=== PATIENT | male | born 1960 ===

== ENCOUNTER 2017-08-19 01:06 | Inpatient (IN) | payer BC ==
[2017-08-19] MEDS ORDERED: SODIUM CHLORIDE 0.9% 1,000 ML IV STA (01:32)
[2017-08-19] MEDS ORDERED: SODIUM CHLORIDE 0.9% 500 ML IV ONE (01:33)
[2017-08-19] MEDS ORDERED: HYDROmorphone 0.5 MG/0.5 ML SYRINGE IVP STA (01:33)
[2017-08-19] MEDS ORDERED: RX INFO: IV CONTRAST WAS GIVEN 1 EACH MISC MISCELLANE PRN (01:33)
[2017-08-19] MEDS ORDERED: ONDANSETRON 4 MG/2 ML VIAL IVP STA (01:33)
--- NOTE | 2017-08-19 01:37 | ED ---
General Adult HPI - General Chief complaint: Abdominal Pain Stated complaint: Abdominal Pain Time Seen by Provider: 08/19/17 01:18 Source: patient Mode of arrival: ambulatory Limitations: language barrier - History of Present Illness Initial comments: 56-year-old male presenting with chief complaint of abdominal pain. History is somewhat limited secondary to language barrier. Patient complains of approximately one week of generalized abdominal pain. Patient points to his belly button and lower abdomen. He denies any chest pain. States he has had some shortness of breath over the past week as well. No fever reported. Patient denies vomiting but states he has had nausea. He denies diarrhea. Patient states he has no known medical problems, however he does not see a doctor regularly. He is not on any medication currently. He does admit to decreased oral intake secondary to nausea. - Related Data Allergies Allergy/AdvReac Type Severity Reaction Status Date / Time No Known Allergies Allergy Verified 08/19/17 01:14 Review of Systems ROS Statement: Those systems with pertinent positive or pertinent negative responses have been documented in the HPI. ROS Other: All systems not noted in ROS Statement are negative. Past Medical History Past Medical History: No Reported History History of Any Multi-Drug Resistant Organisms: None Reported Past Surgical History: No Surgical Hx Reported Past Psychological History: No Psychological Hx Reported Smoking Status: Never smoker Past Alcohol Use History: None Reported Past Drug Use History: None Reported General Exam Limitations: no limitations General appearance: alert, in no apparent distress Head exam: Present: atraumatic, normocephalic Eye exam: Present: normal appearance, PERRL ENT exam: Present: mucous membranes dry Neck exam: Present: normal inspection. Absent: tenderness, meningismus Respiratory exam: Present: normal lung sounds bilaterally. Absent: respiratory distress, wheezes, rales Cardiovascular Exam: Present: tachycardia, irregular rhythm GI/Abdominal exam: Present: soft, tenderness (Generalized tenderness, although there is focal tenderness in the right lower quadrant). Absent: distended, guarding, rebound Rectal exam: Present: normal inspection, normal rectal tone. Absent: black stool, bloody stool Extremities exam: Present: normal inspection, normal capillary refill. Absent: pedal edema Neurological exam: Present: alert, oriented X3, CN II-XII intact. Absent: motor sensory deficit Psychiatric exam: Present: normal affect, normal mood Skin exam: Present: warm, dry, intact. Absent: cyanosis, diaphoretic Course Vital Signs 08/19/17 08/19/17 01:07 02:22 Temperature 97.0 F L Pulse Rate 91 122 H Respiratory 16 18 Rate Blood Pressure 189/101 134/99 O2 Sat by Pulse 99 96 Oximetry EKG Findings - EKG Comments: EKG Findings:: EKG shows atrial fibrillation with RVR, rate of 110, no ST segment elevation, QRS duration 90, QTC 427 Medical Decision Making - Medical Decision Making 56-year-old male presenting with chief complaint of generalized abdominal pain and mild shortness of breath. Patient is noted to be in A. fib with RVR. He has no history of A. fib, he does not see a doctor, not currently on any medications. No lower extremity edema, lungs clear to auscultation. Laboratory studies are obtained, white blood cell count is 8.7, hemoglobin stable 14.9, INR is elevated at 1.6, without anticoagulation, total bili is 1.1 , AST and ALT are mildly elevated likely secondary to venous congestion. BNP is elevated 3050, troponin 0.061. Patient has no chest pain, this is likely secondary to heart failure. Chest x-ray shows cardiomegaly, no significant pulmonary edema, there is right-sided effusion. CT shows mild ascites and cardiomegaly, ascites and venous congestion likely the cause of patient's abdominal pain and nausea. Patient is given aspirin, Lasix, started on Cardizem and heparin in the emergency department. Echo will be obtained. Patient will be admitted with cardiology on consult. Patient states he has a remote history of alcohol use, denies any current alcohol consumption. - Lab Data Result diagrams: 08/19/17 01:25 08/19/17 01:25 Lab Results 08/19/17 08/19/17 08/19/17 Range/Units 01:25 01:25 01:25 WBC 8.7 (3.8-10.6) k/uL RBC 5.65 (4.30-5.90) m/uL Hgb 14.9 (13.0-17.5) gm/dL Hct 50.3 (39.0-53.0) % MCV 89.1 (80.0-100.0) fL MCH 26.4 (25.0-35.0) pg MCHC 29.6 L (31.0-37.0) g/dL RDW 14.7 (11.5-15.5) % Plt Count 170 (150-450) k/uL Neutrophils % 74 % Lymphocytes % 18 % Monocytes % 5 % Eosinophils % 1 % Basophils % 1 % Neutrophils # 6.5 (1.3-7.7) k/uL Lymphocytes # 1.5 (1.0-4.8) k/uL Monocytes # 0.4 (0-1.0) k/uL Eosinophils # 0.1 (0-0.7) k/uL Basophils # 0.1 (0-0.2) k/uL Hypochromasia Marked PT (9.0-12.0) sec INR (<1.2) APTT (22.0-30.0) sec Sodium 136 L (137-145) mmol/L Potassium 4.5 (3.5-5.1) mmol/L Chloride 99 (98-107) mmol/L Carbon Dioxide 29 (22-30) mmol/L Anion Gap 8 mmol/L BUN 19 (9-20) mg/dL Creatinine 0.70 (0.66-1.25) mg/dL Est GFR (MDRD) Af Amer >60 (>60 ml/min/1.73 sqM) Est GFR (MDRD) Non-Af >60 (>60 ml/min/1.73 sqM) Glucose 122 H (74-99) mg/dL Calcium 9.3 (8.4-10.2) mg/dL Magnesium 1.8 (1.6-2.3) mg/dL Total Bilirubin 1.1 (0.2-1.3) mg/dL AST 81 H (17-59) U/L ALT 88 H (21-72) U/L Alkaline Phosphatase 166 H (38-126) U/L Total Creatine Kinase 179 H (55-170) U/L CK-MB (CK-2) 6.9 H* (0.0-2.4) ng/mL CK-MB (CK-2) Rel Index 3.9 Troponin I 0.061 H* (0.000-0.034) ng/mL NT-Pro-B Natriuret Pep pg/mL Total Protein 6.8 (6.3-8.2) g/dL Albumin 3.7 (3.5-5.0) g/dL Lipase 144 (23-300) U/L Urine Color Urine Appearance (Clear) Urine pH (5.0-8.0) Ur Specific [place] (1.001-1.035) Urine Protein (Negative) Urine Glucose (UA) (Negative) Urine Ketones (Negative) Urine Blood (Negative) Urine Nitrite (Negative) Urine Bilirubin (Negative) Urine Urobilinogen (<2.0) mg/dL Ur Leukocyte Esterase (Negative) Urine RBC (0-5) /hpf Urine WBC (0-5) /hpf Urine Mucus (None) /hpf 08/19/17 08/19/17 08/19/17 Range/Units 01:25 01:25 01:44 WBC (3.8-10.6) k/uL RBC (4.30-5.90) m/uL Hgb (13.0-17.5) gm/dL Hct (39.0-53.0) % MCV (80.0-100.0) fL MCH (25.0-35.0) pg MCHC (31.0-37.0) g/dL RDW (11.5-15.5) % Plt Count (150-450) k/uL Neutrophils % % Lymphocytes % % Monocytes % % Eosinophils % % Basophils % % Neutrophils # (1.3-7.7) k/uL Lymphocytes # (1.0-4.8) k/uL Monocytes # (0-1.0) k/uL Eosinophils # (0-0.7) k/uL Basophils # (0-0.2) k/uL Hypochromasia PT 14.6 H (9.0-12.0) sec INR 1.6 H (<1.2) APTT 24.4 (22.0-30.0) sec Sodium (137-145) mmol/L Potassium (3.5-5.1) mmol/L Chloride (98-107) mmol/L Carbon Dioxide (22-30) mmol/L Anion Gap mmol/L BUN (9-20) mg/dL Creatinine (0.66-1.25) mg/dL Est GFR (MDRD) Af Amer (>60 ml/min/1.73 sqM) Est GFR (MDRD) Non-Af (>60 ml/min/1.73 sqM) Glucose (74-99) mg/dL Calcium (8.4-10.2) mg/dL Magnesium (1.6-2.3) mg/dL Total Bilirubin (0.2-1.3) mg/dL AST (17-59) U/L ALT (21-72) U/L Alkaline Phosphatase (38-126) U/L Total Creatine Kinase (55-170) U/L CK-MB (CK-2) (0.0-2.4) ng/mL CK-MB (CK-2) Rel Index Troponin I (0.000-0.034) ng/mL NT-Pro-B Natriuret Pep 3050 pg/mL Total Protein (6.3-8.2) g/dL Albumin (3.5-5.0) g/dL Lipase (23-300) U/L Urine Color Yellow Urine Appearance Clear (Clear) Urine pH 6.5 (5.0-8.0) Ur Specific [place] 1.009 (1.001-1.035) Urine Protein 1+ H (Negative) Urine Glucose (UA) Negative (Negative) Urine Ketones Negative (Negative) Urine Blood Negative (Negative) Urine Nitrite Negative (Negative) Urine Bilirubin Negative (Negative) Urine Urobilinogen <2.0 (<2.0) mg/dL Ur Leukocyte Esterase Negative (Negative) Urine RBC 1 (0-5) /hpf Urine WBC <1 (0-5) /hpf Urine Mucus Rare H (None) /hpf Critical Care Time Critical Care Time: Yes Total Critical Care Time: 35 Disposition Clinical Impression: Cardiomegaly, New onset of congestive heart failure, Atrial fibrillation with RVR Disposition: ADMITTED IP TO THIS [facility] Condition: Serious Referrals: None,Stated [Primary Care Provider] - 1-2 days Decision to Admit Reason: Admit from EC Decision Date: 08/19/17 Decision Time: 02:54
[2017-08-19 01:41] LABS: Basophils # (A) 0.1 k/uL (0-0.2); Basophils % (A) 1 %; Eosinophils # (A) 0.1 k/uL (0-0.7); Eosinophils % (A) 1 %; HCT 50.3 % (39.0-53.0); HGB 14.9 gm/dL (13.0-17.5); Hypochromasia Marked; Lymphocytes # (A) 1.5 k/uL (1.0-4.8); Lymphocytes % (A) 18 %; MCH 26.4 pg (25.0-35.0); MCHC 29.6 g/dL (31.0-37.0); MCV 89.1 fL (80.0-100.0); Mean Platelet Volume 7.7; Monocytes # (A) 0.4 k/uL (0-1.0); Monocytes % (A) 5 %; Neutrophils # (A) 6.5 k/uL (1.3-7.7); Neutrophils % (A) 74 %; Platelet Count 170 k/uL (150-450); RBC 5.65 m/uL (4.30-5.90); RDW 14.7 % (11.5-15.5); WBC 8.7 k/uL (3.8-10.6)
[2017-08-19 01:48] LABS: INR 1.6 (<1.2); Partial Thromboplastin Time 24.4 sec (22.0-30.0); Prothrombin Time 14.6 sec (9.0-12.0)
[2017-08-19 01:50] LABS: ALT 88 U/L (21-72); AST 81 U/L (17-59); Albumin 3.7 g/dL (3.5-5.0); Alkaline Phosphatase 166 U/L (38-126); Anion Gap 8 mmol/L; Blood Urea Nitrogen 19 mg/dL (9-20); Calcium 9.3 mg/dL (8.4-10.2); Carbon Dioxide 29 mmol/L (22-30); Chloride 99 mmol/L (98-107); Glucose 122 mg/dL (74-99); Lipase 144 U/L (23-300); Potassium 4.5 mmol/L (3.5-5.1); Sodium 136 mmol/L (137-145); Total Bilirubin 1.1 mg/dL (0.2-1.3); Total Protein 6.8 g/dL (6.3-8.2)
[2017-08-19 01:55] LABS: Appearance,Urine Clear (Clear); Bilirubin,Urine Negative (Negative); Blood,Urine Negative (Negative); Color,Urine Yellow; Glucose,Urine (UA) Negative (Negative); Ketones,Urine Negative (Negative); Leukocyte Esterase,Urine Negative (Negative); Mucus,Urine Rare /hpf; PH, Urine 6.5 (5.0-8.0); Protein,Urine 1+ (Negative); RBC,Urine 1 /hpf (0-5); Specific Gravity,Urine 1.009 (1.001-1.035); Urobilinogen,Urine <2.0 mg/dL (<2.0); WBC,Urine <1 /hpf (0-5)
--- NOTE | 2017-08-19 02:29 | CT ---
EXAMINATION TYPE: CT abdomen pelvis w con DATE OF EXAM: 08/19/2017 COMPARISON: NONE HISTORY: Abd pain CT DLP: 895.40 mGycm Automated exposure control for dose reduction was used. TECHNIQUE: Helical acquisition of images was performed from the lung bases through the pelvis. CONTRAST: Performed without Oral Contrast and with IV Contrast, patient injected with 100 mL of Omnipaque 300. FINDINGS: Heart is moderately enlarged. There is mild right pleural effusion. There is reflux of contrast into the hepatic veins consistent with heart failure. Liver shows no focal defect. Bile ducts are not dilated. Gallbladder appears normal. Spleen and pancr eas appear normal. There is a small amount of free fluid in the left paracolic gutter. There is no adrenal mass. Kidneys show satisfactory contrast opacification. There is no hydronephrosi s. There is no retroperitoneal adenopathy. There is no sign of free air. Appendix appears normal. There is a small amount of fluid in the pelvis. Bladder distends smoothly. T here is no evidence of a pelvic mass. I see no intestinal wall thickening. There are no dilated loops. I see no bony destructive process. IMPRESSION: MODERATELY SEVERE CARDIOMEGALY. CHANGES OF CONGESTIVE HEART FAILURE WITH RIGHT PLEURAL EFFUSION. MILD ASCITES FLUID. There are a few sigmoid diverticula without evidence of diverticulitis.
--- NOTE | 2017-08-19 02:30 | XR ---
EXAMINATION TYPE: XR chest 2V DATE OF EXAM: 08/19/2017 COMPARISON: NONE HISTORY: Chest pain TECHNIQUE: Frontal and lateral views of the chest are obtained. FINDINGS: Heart is moderately enlarged. There is mild congestion. There is small right pleural effus ion. There are chest leads. IMPRESSION: Moderate cardiomegaly with small right pleural effusion. Mild pulmonary congestion but n o overt heart failure.
[2017-08-19] MEDS ORDERED: FUROSEMIDE 10 MG/ML 4 ML VIAL IV ONE (02:33)
[2017-08-19] MEDS ORDERED: DILTIAZEM 125 MG in SODIUM CHLORIDE 0.9% 100 ML IV ONE (02:33)
[2017-08-19] MEDS ORDERED: ASPIRIN 325 MG TAB PO STA (02:33)
[2017-08-19] MEDS ORDERED: DILTIAZEM 5 MG/ML 5 ML VIAL IVP STA (02:34)
[2017-08-19 02:35] LABS: Creatine Kinase MB 6.9 ng/mL (0.0-2.4); Troponin I 0.061 ng/mL (0.000-0.034)
[2017-08-19] MEDS ORDERED: HEPARIN SODIUM,PORCINE 5,000 UNIT/ML 1 ML VIAL IV ONE (02:35)
[2017-08-19] MEDS ORDERED: HEPARIN SODIUM,PORCINE 5,000 UNIT/ML 1 ML VIAL IV PRN (02:35)
[2017-08-19] MEDS ORDERED: NALOXONE 0.4 MG/ML 1 ML VIAL IV PRN (02:46)
[2017-08-19] MEDS ORDERED: ACETAMINOPHEN TAB 325 MG TAB PO PRN (02:46)
[2017-08-19] MEDS: HEPARIN SOD,PORK IN 0.45% NACL 25,000 UNIT in 0.45% NACL 1 500ML.BAG IV SCH (03:11)
[2017-08-19] MEDS: AMIODARONE 450 MG in DEXTROSE 5% IN WATER 250 ML IV SCH ×4 (05:57→14:29)
[2017-08-19] MEDS ORDERED: MAGNESIUM SULFATE-D5W PMX 1 GM in DEXTROSE/WATER 1 100ML.BAG IVPB ONE (06:00)
[2017-08-19 09:33] LABS: Creatine Kinase MB 7.3 ng/mL (0.0-2.4); Troponin I 0.055 ng/mL (0.000-0.034)
--- NOTE | 2017-08-19 10:13 | ECHOF ---
Referral Reason:CHF MEASUREMENTS -------- HEIGHT: 165.1 cm WEIGHT: 81.6 kg BP: 170/116 RVIDd: 3.9 cm (< 3.3) IVSd: 1.8 cm (0.6 - 1.1) LVIDd: 4.2 cm (3.9 - 5.3) LVPWd: 1.4 cm (0.6 - 1.1) IVSs: 1.9 cm LVIDs: 3.7 cm LVPWs: 1.7 cm LA Diam: 5.3 cm (2.7 - 3.8) LAESV Index (A-L): 65.67 ml/m Ao Diam: 2.9 cm (2.0 - 3.7) AV Cusp: 1.9 cm (1.5 - 2.6) LA Diam: 5.0 cm (2.7 - 3.8) MV EXCURSION: 20.282 mm (> 18.000) MV EF SLOPE: 206 mm/s (70 - 150) EPSS: 0.3 cm MV E Nolan: 0.59 m/s MV DecT: 160 ms MV A Nolan: 0.95 m/s MV E/A Ratio: 0.62 RAP: 5.00 mmHg RVSP: 41.93 mmHg FINDINGS -------- Atrial fibrillation. This was a technically good study. The left ventricular size is normal. There is severe concentric left ventricular hypertrophy. Ove rall left ventricular systolic function is severely impaired with, an EF between 25 - 30 %. Mid ant erior LV wall motion is akinetic. Mid anteroseptal LV wall motion is hypokinetic. Apical anteri or LV wall motion is hypokinetic. Apical septum LV wall motion is hypokinetic. The right ventricle is normal in size and function. LA is severely dilated >40 ml/m2 The right atrial size is normal. The aortic valve is trileaflet and appears structurally normal. Trace to mild aortic regurgitation. The mitral valve is normal. [id number] mitral regurgitation is present. Mild tricuspid regurgitation present. There is mild pulmonary hypertension. The right ventricular systolic pressure, as measured by Doppler, is 41.93mmHg. Trace/mild (physiologic) pulmonic regurgitation. The aortic root size is normal. There is no pericardial effusion. CONCLUSIONS -------- 1. Atrial fibrillation. 2. There is severe concentric left ventricular hypertrophy. 3. Overall left ventricular systolic function is severely impaired with, an EF between 25 - 30 %. 4. Mid anterior LV wall motion is akinetic. 5. Mid anteroseptal LV wall motion is hypokinetic. 6. Apical anterior LV wall motion is hypokinetic. 7. Apical septum LV wall motion is hypokinetic. 8. LA is severely dilated >40 ml/m2 9. Trace to mild aortic regurgitation. 10. Xlgu-[id number]-[id number] mitral regurgitation is present. 11. Mild tricuspid regurgitation present. 12. There is mild pulmonary hypertension. 13. Trace/mild (physiologic) pulmonic regurgitation. 14. The aortic root size is normal. 15. There is no pericardial effusion. INSPECTOR MECHANICAL: Cassie Lancaster RDCS
[2017-08-19 14:16] LABS: Creatine Kinase MB 6.6 ng/mL (0.0-2.4); Troponin I 0.044 ng/mL (0.000-0.034)
[2017-08-19] MEDS: LOSARTAN 50 MG TAB PO SCH (14:36)
[2017-08-19] MEDS: FUROSEMIDE 10 MG/ML 4 ML VIAL IV SCH ×2 (16:04→22:12)
--- NOTE | 2017-08-19 21:58 | HP ---
HISTORY AND PHYSICAL DATE OF SERVICE: 08/19/2017 CHIEF COMPLAINTS: Abdominal pain and shortness of breath. HISTORY OF PRESENT ILLNESS: This 56-year-old gentleman with a past medical history of no significant medical issues, not being followed by any primary physician in the outpatient setting, limited communication as the patient does not speak Frisian. The patient was apparently taken to [facility] with complaints of shortness of breath and abdominal pain which is progressive in nature. Evaluation showed cardiomegaly and as well as possibly CHF, right pleural effusion and 2D echo showed ejection fraction 25- 30% with multiple wall motion abnormalities and possibly cardiomyopathy, mild to moderate mild mitral regurgitation and tricuspid regurgitation also. There is no history of fever, rigors or chills. No history of headache, loss of consciousness or seizures. PAST MEDICAL HISTORY: No significant cardiorespiratory illness in the past. MEDICATIONS: None. ALLERGIES: None. FAMILY HISTORY: Family history of motor vehicle accident. SOCIAL HISTORY: No history of smoking. No history of alcohol. REVIEW OF SYSTEMS: ENT: No diminished vision or hearing. Cardiovascular: As mentioned earlier. Respiratory: As mentioned earlier. GI no nausea or vomiting. : No dysuria. NERVOUS SYSTEM: No numbness or weakness. Allergy/Immunology: No asthma or hayfever. Musculoskeletal: As mentioned earlier. Hematology/Oncology: No history of anemia. Endocrine: No history of diabetes, hypothyroidism. Constitutional: As mentioned earlier. Dermatology: Negative. Rheumatology: Negative. Psychiatric: As mentioned earlier. PHYSICAL EXAMINATION: Patient is alert and oriented x3. Pulse is 58. Blood pressure 140/59, respirations 16, temperature 97 degrees, pulse ox 98% on room air. HEENT: Conjunctivae normal. Neck: No jugular venous distention. CARDIOVASCULAR: S1, S2 muffled. Jugular venous distention at the root of the neck. No S3, no S4. Ejection systolic murmur. Respiration: Breath sounds diminished in the bases. Scattered rhonchi. A few crackles. ABDOMEN: Soft, nontender. No mass palpable. LEGS: Minimal edema. Nervous system: Higher functions as mentioned earlier. Moves all four extremities. No focal motor or sensory deficits. Lymphatics: No lymph nodes palpable in the neck, axillae or groin. Skin: No ulcer, rash or bleeding. LAB: CBC within normal limits. INR 1.6. Sodium 136 and total bilirubin is 1.1. AST is 81, ALT is 88, alkaline phosphatase 166. Troponin 0.061. ASSESSMENT: 1. Congestive heart failure acute exacerbation with acute on chronic systolic dysfunction ejection fraction 25-30%. 2. Possible cardiomyopathy. 3. Troponin 0.06 indeterminate. 4. Increased AST/ALT and alkaline phosphatase. 5. Hyponatremia. 6. Increased random blood sugar. RECOMMENDATIONS AND DISCUSSION: In this 56-year-old gentleman who presented with multiple complex medical issues, we will monitor the patient closely, continue the current medications, management and symptomatic treatment. Otherwise at this time I recommend IV diuretics. Cardiology consultation. The exact etiology of cardiomyopathy is unknown at this time. Continue to monitor. Troponins indeterminate. Repeat labs will be ordered. DVT prophylaxis. Further recommendation to follow. IV heparin drip was initiated. Also recommend close follow up with a primary physician in the outpatient setting also. AMAN / LO: [id number] /
[2017-08-19] MEDS: METOPROLOL TARTRATE 50 MG TAB PO SCH (22:12)
--- NOTE | 2017-08-20 01:03 | CONS ---
CONSULTATION DATE OF SERVICE: 08/19/2017. 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 According to him, he has no medical problems. He has not had any surgeries. He has no allergies. He used to see Dr. Mei in the past. However, he came into the hospital with mainly complaints of what he describes as an abdominal discomfort. He has some language barrier, but he is able to express his issues very well. For 1 week he has had generalized abdominal pain, more in the center of the abdomen. No radiation. Seemed to be getting worse progressively. No diarrhea or constipation. He has some nausea, but no manny emesis. With these symptoms, he came into the hospital. I was asked to see him mainly because he was in atrial fibrillation with a moderate ventricular rate that was also discovered now. According to the patient, he has no knowledge of atrial fib or any other major medical problems and he was works quite hard physically had been doing so until about 10 days ago. PAST MEDICAL HISTORY: Unremarkable. MEDICATIONS: None. ALLERGIES: None. REVIEW OF SYSTEMS: Remarkable for abdominal discomfort, occasional shortness of breath. No chest pain. No palpitations. No syncope. No GI or symptoms. EKG revealed atrial fibrillation, moderately rapid ventricular rate, voltage criteria for LVH. EXAMINATION: Blood pressure is 130/80, pulse 80, pulse rate 110 per minute, irregular. HEENT unremarkable. Fundus was not examined by me. Neck is supple. There is JVD of 1 cm. No carotid bruit. Heart exam reveals S1, S2 with irregularity in rhythm. There is a short systolic murmur at left sternal border. Lungs reveal bilateral fine rales with scattered rhonchi. Abdomen is soft. There is mild mid abdominal tenderness. Bowel sounds are normal. Lower extremities reveal diminished palpable pulses. No edema. Central nervous system is grossly within normal limits. Echocardiogram performed today revealed an ejection fraction of 25% to 30%, with some wall motion abnormalities involving the anteroapical anteroseptal portion of left ventricle. Right ventricle appears to be of normal size. There is mild to moderate mitral regurgitation, mild aortic regurgitation, but there is mild elevation of PA pressures as well. LABORATORY DATA: Suggests a troponin of 0.06, 0.05, and 0.04. BNP is over 3000. TSH is normal. IMPRESSION: 1. Exacerbation of systolic heart failure with elevated BNP. 2. Atrial fib with rapid ventricular rate, probably recent onset or contributing factor to his underlying CHF. 3. Abdominal pain of unclear etiology. Laboratory data also suggests a INR of 1.6 spontaneously without any IV heparin or Coumadin. RECOMMENDATIONS: I am recommending that we will optimize rate control and await further workup for his abdominal pain. We will treat him with losartan 50 mg daily, metoprolol 50 mg b.i.d., and hopefully we can discontinue the Cardizem drip. Continue Lasix 40 mg IV push every 8 hours for 3 doses and then switch to oral dose after that. Decrease the aspirin to 81 mg daily. Await input from GI with regard to his abdominal discomfort. The patient is also on intravenous heparin and we will continue this for the time being. Prognosis remains guarded. Patient will require coronary angiography down the road after his other issues are clarified. Discussed my thoughts in detail with the patient. No other family member was available. Thank you very much for the consult. AMAN / SLYN: [id number] /
[2017-08-20 06:09] LABS: Basophils # (A) 0.1 k/uL (0-0.2); Basophils % (A) 1 %; Eosinophils % (A) 0 %; HCT 45.3 % (39.0-53.0); HGB 13.8 gm/dL (13.0-17.5); Hypochromasia Moderate; Lymphocytes # (A) 1.6 k/uL (1.0-4.8); Lymphocytes % (A) 23 %; MCH 26.5 pg (25.0-35.0); MCHC 30.4 g/dL (31.0-37.0); MCV 87.3 fL (80.0-100.0); Monocytes # (A) 0.3 k/uL (0-1.0); Monocytes % (A) 5 %; Neutrophils # (A) 4.9 k/uL (1.3-7.7); Neutrophils % (A) 69 %; Platelet Count 177 k/uL (150-450); RBC 5.19 m/uL (4.30-5.90); RDW 14.8 % (11.5-15.5); WBC 7.1 k/uL (3.8-10.6)
[2017-08-20] MEDS: HEPARIN SOD,PORK IN 0.45% NACL 25,000 UNIT in 0.45% NACL 1 500ML.BAG IV SCH (06:33)
[2017-08-20] MEDS: FUROSEMIDE 10 MG/ML 4 ML VIAL IV SCH ×3 (08:26→23:18)
[2017-08-20] MEDS: METOPROLOL TARTRATE 50 MG TAB PO SCH ×2 (08:26→20:13)
[2017-08-20] MEDS: ASPIRIN 81 MG PO SCH (08:26)
[2017-08-20] MEDS: LOSARTAN 50 MG TAB PO SCH (08:26)
[2017-08-20] MEDS ORDERED: FUROSEMIDE 20 MG TAB PO SCH (09:00)
[2017-08-20 09:02] LABS: ALT 75 U/L (21-72); AST 66 U/L (17-59); Albumin 3.3 g/dL (3.5-5.0); Alkaline Phosphatase 115 U/L (38-126); Anion Gap 9 mmol/L; Blood Urea Nitrogen 19 mg/dL (9-20); Calcium 8.8 mg/dL (8.4-10.2); Carbon Dioxide 31 mmol/L (22-30); Chloride 97 mmol/L (98-107); Glucose 117 mg/dL (74-99); Potassium 4.5 mmol/L (3.5-5.1); Sodium 137 mmol/L (137-145); Total Bilirubin 1.7 mg/dL (0.2-1.3); Total Protein 6.3 g/dL (6.3-8.2)
[2017-08-20] MEDS ORDERED: NITROGLYCERIN SL TABS 0.4 MG TAB SUBLINGUAL PRN (09:15)
[2017-08-20] MEDS ORDERED: ASPIRIN 325 MG TAB PO STA (09:15)
[2017-08-20] MEDS ORDERED: ALPRAZolam 0.5 MG TAB PO PRN (09:15)
[2017-08-20] MEDS ORDERED: ALPRAZolam 0.25 MG TAB PO PRN (09:15)
[2017-08-20] MEDS ORDERED: ATORVASTATIN 80 MG TAB PO STA (09:15)
[2017-08-20] MEDS ORDERED: SODIUM CHLORIDE 0.9% 1,000 ML in EMPTY BAG 1 BAG IV ONE (09:15)
--- NOTE | 2017-08-20 10:56 | P.CONS ---
History of Present Illness - Reason for Consult Consult date: 08/20/17 Elevated liver enzymes epigastric pain Requesting physician: Dariela Salas - History of Present Illness 56-year-old male admitted with reports of shortness of breath secondary to new onset atrial fibrillation, congestive heart failure acute exacerbation with acute on chronic systolic dysfunction ejection fraction 25-30 % as well as upper abdominal chest pain. Patient is able to communicate with simple Amharic; history obtained from nursing staff and medical records. Consult requested for elevated liver enzymes and abdominal pain. Abdominal pain described mostly in the mid sternal area worsens with lying flat. Mild nausea no emesis. Denies hematemesis, hematochezia, or melena. Admission INR 1.6. BUN 19. Creatinine 0.7. Total bilirubin 1.1. AST 81. ALT 88. Alk phos is 166. CK-MB 6.9. Troponin 0.04-0.06. Lipase 144. White count 8.7. Hemoglobin 14.9. Platelet 170. Today total bilirubin is 1.7. AST 66. ALT 75. Alk phos is 115. CT abdomen and pelvis moderately enlarged heart with mild right pleural effusion with reflux of contrast into the hepatic veins consistent with heart failure. Liver showed no focal defect. Bile duct was not dilated. Gallbladder appeared normal. No reports of fever chills hematemesis hematochezia or melena. No history of ETOH abuse or known liver disorders. No weight loss. Presently receiving IV heparin; heart catheterization scheduled tomorrow. Review of Systems Obtained from nursing staff and medical records Constitutional: Denies fever, chills, sweats, weight gain, or loss. HEENT: Negative for migraines, blurred vision or loss, earaches, drainage, tinnitus, oral mucosal lesions, dysphagia, or odynophagia. Cardiac: Negative for chest pain, arrhythmias, or palpitation. Respiratory: Negative for shortness of breath, hemoptysis, cough, or sputum production. Gastrointestinal: See HPI for pertinent findings. Genitourinary: Negative for hematuria, urgency, frequency, polyuria, dysuria, or penile discharge. Musculoskeletal: Negative for muscle aches, swelling, arthritis, and arthralgias. Neurologic: Negative for stroke or TIA. Endocrine: Negative for thyroid problems. Skin: Negative for rash or itching. Psychiatric: Negative history for depression and anxiety Past Medical History Past Medical History: No Reported History Additional Past Medical History / Comment(s): Pt states he had a normal bowel movement yesterday. History of Any Multi-Drug Resistant Organisms: None Reported Past Surgical History: No Surgical Hx Reported Smoking Status: Never smoker - Past Family History Father History Unknown: Yes Additional Family Medical History / Comment(s): Father in a MVA when pt was 8yrs old. Mother History Unknown: Yes Additional Family Medical History / Comment(s): Mother in a MVA when pt was 8yrs old. Medications and Allergies Home Medications Medication Instructions Recorded Confirmed Type No Known Home Medications [No 08/19/17 08/19/17 History Known Home Medications] Allergies Allergy/AdvReac Type Severity Reaction Status Date / Time No Known Allergies Allergy Verified 08/19/17 07:10 Physical Exam Vitals: Vital Signs Temp Pulse Pulse Resp BP BP Pulse Ox 08/20/17 04:00 97.0 F L 69 18 136/88 98 08/20/17 00:00 97.6 F 72 18 143/85 97 08/19/17 20:00 96.8 F L 80 16 109/88 97 08/19/17 16:00 97 F L 83 58 L 16 130/90 150/90 98 08/19/17 12:00 77 132/100 98 Intake and Output 08/19/17 08/20/17 08/20/17 22:59 06:59 14:59 Intake Total 240 361.89 240 Output Total 350 700 Balance -110 -338.11 240 Intake: Intake, IV Titration 361.89 Amount Heparin Sod,Pork in 0.45% 361.89 NaCl 25,000 unit In 0.45 % NaCl 1 500ml.bag @ 12 UNITS/KG/HR 19.59 mls/hr IV .Q24H [facility] Rx#: [id number] Oral 240 240 Output: Urine 350 700 Other: Voiding Method Toilet # Voids 1 Weight 81.647 kg 84 kg General appearance: The patient is alert, oriented, in no acute distress. HET: Head is normocephalic and atraumatic. Pupils are equal and reactive. Oropharynx is clear without lesions. Neck: Supple without lymphadenopathy. Trachea midline. Heart: S1 S2. Lungs: No crackles or wheezes are heard. Abdomen: Soft, nontender, nondistended with bowel sounds. No peritoneal signs. No palpable organomegaly or masses. Extremities: Normal skin color and turgor. No cyanosis, rash, ulceration, clubbing, or edema. Radial and pedal pulses are 2/4 bilaterally. Neurological: No focal deficits. Strength and sensation are grossly intact. Results CBC & Chem 7: 08/22/17 06:01 08/22/17 06:01 Labs: Abnormal Lab Results - Last 24 Hours (Table) 08/19/17 08/20/17 08/20/17 Range/Units 13:18 05:49 05:49 MCHC 30.4 L (31.0-37.0) g/dL APTT 47.3 H (22.0-30.0) sec Chloride (98-107) mmol/L Carbon Dioxide (22-30) mmol/L Glucose (74-99) mg/dL Total Bilirubin (0.2-1.3) mg/dL AST (17-59) U/L ALT (21-72) U/L CK-MB (CK-2) 6.6 H* (0.0-2.4) ng/mL Troponin I 0.044 H* (0.000-0.034) ng/mL Albumin (3.5-5.0) g/dL 08/20/17 Range/Units 05:49 MCHC (31.0-37.0) g/dL APTT (22.0-30.0) sec Chloride 97 L (98-107) mmol/L Carbon Dioxide 31 H (22-30) mmol/L Glucose 117 H (74-99) mg/dL Total Bilirubin 1.7 H (0.2-1.3) mg/dL AST 66 H (17-59) U/L ALT 75 H (21-72) U/L CK-MB (CK-2) (0.0-2.4) ng/mL Troponin I (0.000-0.034) ng/mL Albumin 3.3 L (3.5-5.0) g/dL CT scan - abdomen: report reviewed (Dr. Acosta) Assessment and Plan (1) Elevated liver enzymes Narrative/Plan: 56-year-old male admitted with acute shortness of breath upper new onset atrial fibrillation abdominal chest discomfort exacerbated when lying down and elevated liver enzymes with radiographic abdominal cardiac imaging reporting cardiomegaly and congestive heart failure. Suspect elevated liver enzymes secondary to passive venous congestion however other pathology cannot be entirely excluded. Current Visit: Yes Status: Acute Code(s): R74.8 - ABNORMAL LEVELS OF OTHER SERUM ENZYMES SNOMED Code(s): 521794040 Plan: 1. IV heparin infusing, cardiac catheterization scheduled tomorrow. Repeat liver enzymes in a.m; improving. Hold statin. Hepatitis screen. Education provided in Korean. Serologic chronic liver disease workup if LFTs do not improve. Will follow closely with you. Thank you for this kind referral and the opportunity to participate in the care of your patient. This consultation was discussed with Dr. Acosta. The impression and plan of care have been directed as dictated.
[2017-08-20 11:47] VITALS: BMI 30.8
--- NOTE | 2017-08-20 12:05 | PN ---
PROGRESS NOTE This is a gentleman with a new onset heart failure and new onset atrial fibrillation, came in with abdominal pain, has some GI abnormalities with mild abnormality in liver function tests. His heart rate is better controlled. He is on a beta kaylin and Lasix. He is resting comfortably at the time of my evaluation. There is significant wall motion abnormality on the echocardiogram, raising the possibility of ischemic heart disease, but the patient has no history or recollection of any chest pain in the recent or remote past. I am advising right and left heart catheterization. Rationale, risks, benefits, options were carefully explained to the patient. He seems to understand all details and wished to proceed with the procedure. His electrolyte profile and renal function is good today. I will perform coronary angiography tomorrow from the right femoral approach. I will also seek a GI consult to see if there are any active issues with regards to his abdominal pain and abnormal liver function tests. Vital signs are stable with a heart rate in the 80s, atrial fib, blood pressure 130/80. JVD is not evident today. S1, S2 heard normally. Short systolic murmur noted. Lungs revealed decent air entry. Abdomen is soft. There is not much tenderness. Bowel sounds are normal. Lower extremities reveal palpable pulses. No edema. Central system is normal. MMODL / IJN: [id number] /
[2017-08-20 18:57] LABS: Hepatitis A Antibody IgM Non-Reactive (Non-Reactive); Hepatitis B Core IgM Non-Reactive (Non-Reactive)
--- NOTE | 2017-08-20 21:44 | PN ---
PROGRESS NOTE DATE OF SERVICE: 08/20/2017. HISTORY: This 56-year-old gentleman admitted with abdominal pain and shortness with features of CHF, the patient has significant cardiomyopathy, etiology is unknown. The patient had new onset CHF. Cardiology is following the patient. Possible cardiac cath is being planned at this time. Gastroenterology has seen the patient for elevated liver enzymes, chronic liver disease suspected at this time, passive congestion, and elevated LFTs are another possibility. REVIEW OF SYSTEMS: Cardiovascular: As mentioned. GI: As mentioned. : None. NERVOUS SYSTEM: No numbness or weakness. CURRENT MEDICATIONS: Reviewed, include Tylenol 650 every 6 hours p.r.n., Xanax 0.5 every 6 hours, aspirin 81 mg, Lasix 40 mg IV every 2 hours, heparin. PHYSICAL EXAM: Patient is alert, oriented x3. Pulse is 78, blood pressure 130/70, respirations 18, temperature 98.7, pulse ox 98% room air. HEENT: Conjunctivae normal. NECK: Supple. CARDIOVASCULAR: S1 and S2 muffled. LUNGS: Breath sounds diminished in the bases. Few scattered rhonchi and crackles. ABDOMEN: Soft, obese, nontender. No mass palpable. LEGS: Bilateral leg edema. NERVOUS SYSTEM: Higher functions as mentioned earlier. Moves all 4 limbs. No focal motor or sensory deficits. LYMPHATICS: No lymph nodes palpable in the neck, axillae or groin. SKIN: No rash or bleeding. LABS: CBC within normal limits. Sodium 139, potassium 4.5, AST is 66, ALT 75. Troponin 0.044. Albumin is 3.3. ASSESSMENT: 1. Congestive heart failure acute exacerbation with acute on chronic systolic dysfunction, ejection fraction 25% to 30%. 2. Possible cardiomyopathy. 3. Troponin 0.06, indeterminate. 4. Increased AST, ALT, alkaline phosphatase, possibly chronic liver disease or due passive congestion from congestive heart failure. 5. Hyponatremia. 6. Increased random blood sugar. RECOMMENDATIONS: Recommend to continue current medications, continue to monitor, symptomatic treatment. Continue with diuretics. Monitor fluids and electrolytes closely. Repeat electrolytes and LFTs. Cardiology has seen the patient and possibility of ischemic cardiomyopathy considered. Cardiac cath has been recommended. Prognosis guarded. See orders for details. MMODL / IJN: [id number] /
[2017-08-21] MEDS: HEPARIN SOD,PORK IN 0.45% NACL 25,000 UNIT in 0.45% NACL 1 500ML.BAG IV SCH (03:26)
[2017-08-21] MEDS: FUROSEMIDE 10 MG/ML 4 ML VIAL IV SCH ×2 (06:13→20:02)
[2017-08-21] MEDS: ASPIRIN 81 MG PO SCH (06:13)
[2017-08-21 06:14] LABS: Basophils # (A) 0.1 k/uL (0-0.2); Basophils % (A) 1 %; Eosinophils # (A) 0.1 k/uL (0-0.7); Eosinophils % (A) 1 %; HCT 49.7 % (39.0-53.0); HGB 15.2 gm/dL (13.0-17.5); Hypochromasia Marked; Lymphocytes # (A) 1.9 k/uL (1.0-4.8); Lymphocytes % (A) 20 %; MCH 27.1 pg (25.0-35.0); MCHC 30.5 g/dL (31.0-37.0); MCV 88.7 fL (80.0-100.0); Mean Platelet Volume 7.8; Monocytes # (A) 0.5 k/uL (0-1.0); Monocytes % (A) 5 %; Neutrophils # (A) 6.9 k/uL (1.3-7.7); Neutrophils % (A) 72 %; Platelet Count 186 k/uL (150-450); RDW 14.5 % (11.5-15.5); WBC 9.6 k/uL (3.8-10.6)
[2017-08-21] MEDS: LOSARTAN 50 MG TAB PO SCH (06:15)
[2017-08-21] MEDS: METOPROLOL TARTRATE 50 MG TAB PO SCH ×2 (06:15→20:02)
[2017-08-21 06:33] LABS: Glucose,Whole Blood 106 mg/dL (75-99)
[2017-08-21 06:33] LABS: ALT 70 U/L (21-72); AST 62 U/L (17-59); Albumin 3.8 g/dL (3.5-5.0); Alkaline Phosphatase 133 U/L (38-126); Anion Gap 10 mmol/L; Blood Urea Nitrogen 22 mg/dL (9-20); Calcium 8.7 mg/dL (8.4-10.2); Carbon Dioxide 35 mmol/L (22-30); Chloride 96 mmol/L (98-107); Glucose 122 mg/dL (74-99); Sodium 141 mmol/L (137-145); Total Bilirubin 2.1 mg/dL (0.2-1.3); Total Protein 6.8 g/dL (6.3-8.2)
[2017-08-21] MEDS ORDERED: IV FLUID CONTINUATION 900 ML IV ONE (11:19)
[2017-08-21] MEDS ORDERED: diphenhydrAMINE 50 MG/ML 1 ML VIAL ONE (11:30)
[2017-08-21] MEDS ORDERED: MIDAZOLAM 2 MG/2 ML VIAL ONE (11:30)
[2017-08-21] MEDS ORDERED: diphenhydrAMINE 50 MG/ML 1 ML VIAL IVP ONE (11:40)
[2017-08-21] MEDS ORDERED: MIDAZOLAM 2 MG/2 ML VIAL IV ONE (11:41)
[2017-08-21] MEDS ORDERED: LIDOCAINE 2% INJ 20 MG/ML SQ ONE (11:42)
[2017-08-21 12:02] LABS: O2 Sat Blood Gas 94.1 %
[2017-08-21 12:04] LABS: O2 Sat Blood Gas 53.9 %
[2017-08-21 12:06] LABS: O2 Sat Blood Gas 56.2 %
[2017-08-21] MEDS ORDERED: HYDROmorphone 2 MG/ML 1 ML SYRINGE ONE (12:11)
[2017-08-21] MEDS ORDERED: HYDROmorphone 2 MG/ML 1 ML SYRINGE IV ONE (12:12)
[2017-08-21] MEDS ORDERED: IOHEXOL 350 MG/ML 125ML BOTTLE INJ ONE (12:12)
[2017-08-21] MEDS: SODIUM CHLORIDE 0.9% 1,000 ML IV SCH ×2 (12:52→22:52)
--- NOTE | 2017-08-21 16:45 | CC ---
CARDIAC CATHETERIZATION REPORT DATE OF SERVICE: 08/21/17. PROCEDURE: Right and left heart catheterization, coronary angiography and left ventriculography. PERFORMED BY: Dr. Bartolo Werner. CLINICAL INFORMATION: Vern Iqbal is a 56-year-old gentleman who presented to the hospital with increasing abdominal discomfort, shortness of breath, was found to be in atrial fibrillation and was in congestive heart failure. He has a combination of what seems to be a cardiomyopathy with ejection fraction 30% range on echo with atrial fibrillation. To assess if he has underlying ischemic heart disease or not, he was advised coronary angiography. Risks, benefits, options, rationale were explained to the patient and family and was brought in for the procedure today. PROCEDURE NOTE: Under local anesthesia and strict aseptic precautions, a 6-Belizean introducer was placed in the right femoral artery. An 8-Belizean introducer in the right femoral vein. Using a balloon tip rotation catheter, I performed right heart catheterization performed thermodilution cardiac output and obtained saturations. I then performed selective coronary angiography using standard Carl catheters. A pigtail catheter was used to check LV pressures and LV-gram was performed in 30 degree MARQUEZ projection. The patient tolerated procedure well. He had a Perclose device to secure hemostasis and manual compression for the venous sheath. Good hemostasis was secured. He was sent to the room in stable condition. Results were discussed with the patient and family members. CARDIAC CATHETERIZATION FINDINGS: Right atrial pressure was 10 mmHg. Right ventricular pressure was 50/10. Pulmonary artery pressure was 50/20 with a mean of 30. Pulmonary capillary wedge pressure was 18 mmHg. The left ventricular end-diastolic pressure was 24 mmHg without any gradient across aortic valve. The thermodilution cardiac output was 3.7 L and Jose cardiac output was 3.3 L. The femoral arterial saturation was 94% and pulmonary artery saturation was 56%. There was no shunt noted. CORONARY ANGIOGRAPHY FINDINGS: RIGHT CORONARY ARTERY: This is a nondominant vessel. No significant disease. Limited amount of myocardium being supplied by this. LEFT MAIN CORONARY ARTERY: Short patent disease-free vessel that trifurcates into LAD, circumflex and ramus intermedius. Left main itself is short and free of significant disease. RAMUS INTERMEDIUS: A fair caliber vessel extends along laterally and posteriorly has minor irregularities. No significant disease. LEFT ANTERIOR DESCENDING CORONARY ARTERY: Good caliber vessel gives off good-sized diagonal branches, runs all the way to the apex and curves over the apex to supply the inferoapical portion of left ventricle. The entire LAD system gives off some septal and diagonal branches. There is no significant disease in the LAD system and there are 2 good-sized diagonal branches that come off which are free of significant disease and the LAD itself has minor irregularities. LEFT POSTERIOR CIRCUMFLEX CORONARY ARTERY: Technically a dominant vessel, gives off 2 obtuse marginal branches proximally and distally bifurcates into a PDA and PLV that supplies a sizable amount of myocardium. There are minor irregularities but no significant disease. Circumflex system is quite large in caliber. LEFT VENTRICULOGRAM: This was performed in 30 degree MARQUEZ projection revealed left ventricle which is of a normal size with a global decrease in contractility more so in the distal anteroapical as well as inferior wall. However, the this appears to be more of a global hypokinesia with estimated ejection fraction of 30-35% with mild to moderate mitral regurgitation. FINAL IMPRESSION: This patient has elevated filling pressures, ejection fraction of 30-35% with mild to moderate mitral regurgitation. He has a left dominant system, no significant obstructive coronary artery disease. He has moderate pulmonary hypertension with a wedge pressure of 18 and a pulmonary artery pressure of 50/20 with a mean of 30. Cardiac output is about 3.5 L. There is no oxygen step-up. The moderate conscious sedation time for the whole procedure was 40 minutes. Patient was monitored closely with vital signs and oxygen saturation. He received a combination of Versed and Benadryl. Patient tolerated procedure well without complication. Results were discussed with the patient and family. AMAN / SLYN: [id number] /
--- NOTE | 2017-08-21 17:45 | PN ---
PROGRESS NOTE DATE OF SERVICE: 08/21/2017 This 56-year-old gentleman admitted with CHF exacerbation acute on chronic systolic dysfunction, EF 20 to 30%. Patient underwent a cardiac catheterization today which showed mild to moderate mitral regurgitation as well no significant coronary artery disease. The patient had moderate pulmonary hypertension also. The patient possibly had nonischemic cardiomyopathy. Of note also, the lab was HBS antigen was found to be positive. There is no history of fever, rigors. No headache, loss of consciousness, seizures. EXAM: Alert and oriented x3. Pulse is 89, blood pressure 140/92, respiration 18, temperature normal, pulse ox 94% on room air. HEENT: Conjunctivae normal. NECK: No jugular venous distention. CARDIOVASCULAR: S1, S2. RESPIRATORY: Breath sounds diminished in the bases. No rhonchi, no crackles. ABDOMEN: Soft, nontender. LEGS: Minimal edema. NERVOUS SYSTEM: No focal deficits. LABS: CBC within normal limits. Sodium 140, potassium 4, albumin is 2.1, AST 62, ALT 70. ASSESSMENT: 1. Congestive heart failure acute exacerbation with acute on chronic systolic dysfunction ejection fraction 25-30% and nonischemic cardiomyopathy. 2. Status post cardiac catheterization with normal coronary arteries. 3. Troponin 0.06, indeterminate. 4. Increased AST, ALT, alkaline phosphatase with possible chronic liver disease due to maybe cirrhosis of liver or passive congestion on the congestive heart failure. 5. HBsAg positive. 6. Hyponatremia. 7. Increased random blood sugar. RECOMMENDATIONS AND DISCUSSION: I recommend to continue current management and symptomatic treatment. Otherwise medical treatment. Followup closely with Cardiology. I would also recommend a gastroenterology consultation for evaluation of cirrhosis of liver. Will send out HBV DNA. Otherwise prognosis guarded because of multiple complex medical issues. Further recommendations to follow. MMODL / IJN: [id number] /
[2017-08-21] MEDS: APIXABAN 5 MG TAB PO SCH (20:02)
[2017-08-21 20:19] LABS: HIV AB P24 Non-Reactive (Non-Reactive); HIV P24 AG Non-Reactive (Non-Reactive)
[2017-08-22 06:15] LABS: Basophils % (A) 1 %; Eosinophils # (A) 0.1 k/uL (0-0.7); Eosinophils % (A) 1 %; HCT 49.2 % (39.0-53.0); HGB 14.7 gm/dL (13.0-17.5); Hypochromasia Marked; Lymphocytes # (A) 1.4 k/uL (1.0-4.8); Lymphocytes % (A) 16 %; MCH 26.5 pg (25.0-35.0); MCHC 29.8 g/dL (31.0-37.0); MCV 88.9 fL (80.0-100.0); Mean Platelet Volume 7.7; Monocytes # (A) 0.4 k/uL (0-1.0); Monocytes % (A) 5 %; Neutrophils # (A) 6.6 k/uL (1.3-7.7); Neutrophils % (A) 76 %; Platelet Count 172 k/uL (150-450); RBC 5.54 m/uL (4.30-5.90); RDW 14.5 % (11.5-15.5); WBC 8.7 k/uL (3.8-10.6)
[2017-08-22] MEDS ORDERED: SPIRONOLACTONE 25 MG TAB PO SCH (09:00)
[2017-08-22] MEDS ORDERED: LOSARTAN 50 MG TAB PO SCH (09:00)
[2017-08-22 09:27] VITALS: RESP 16; TEMP 97
[2017-08-22] MEDS: METOPROLOL TARTRATE 50 MG TAB PO SCH (09:28)
[2017-08-22] MEDS: APIXABAN 5 MG TAB PO SCH (09:28)
[2017-08-22] MEDS: FUROSEMIDE 10 MG/ML 4 ML VIAL IV SCH (09:28)
[2017-08-22] MEDS: ASPIRIN 81 MG PO SCH (09:28)
[2017-08-22 09:42] LABS: ALT 63 U/L (21-72); AST 52 U/L (17-59); Albumin 3.5 g/dL (3.5-5.0); Alkaline Phosphatase 120 U/L (38-126); Anion Gap 7 mmol/L; Blood Urea Nitrogen 20 mg/dL (9-20); Calcium 8.8 mg/dL (8.4-10.2); Carbon Dioxide 34 mmol/L (22-30); Chloride 101 mmol/L (98-107); Glucose 103 mg/dL (74-99); Potassium 4.5 mmol/L (3.5-5.1); Sodium 142 mmol/L (137-145); Total Bilirubin 1.6 mg/dL (0.2-1.3); Total Protein 6.4 g/dL (6.3-8.2)
--- NOTE | 2017-08-22 11:31 | P.PN ---
Subjective Progress Note Date: 08/22/17 Principal diagnosis: Elevated liver enzymes chest pain shortness of breath Status postcardiac catheterization with normal coronaries. Hepatitis screen reactive for hepatitis B surface antigen. Hepatitis B core IgM antibody nonreactive. HIV panel nonreactive. LFTs improved total bilirubin 1.6. Presently denies epigastric/chest pain. Anticipate discharge. Afebrile. No history of hepatitis. No history of blood transfusions. No history of hepatitis B immunization. No history of intravenous drug abuse. Objective - Vital Signs Vital signs: Vital Signs Temp 97 F L 08/22/17 09:26 Pulse 92 08/22/17 09:26 Resp 16 08/22/17 09:26 BP 124/57 08/22/17 09:26 Pulse Ox 97 08/22/17 09:26 Intake & Output 08/21/17 08/22/17 08/22/17 18:59 06:59 18:59 Intake Total 460 800 Balance 460 800 Weight 80.4 kg Intake: IV 100 Intake, IV Titration 500 Amount Sodium Chloride 0.9% 1, 500 000 ml @ 75 mls/hr IV . [id number] [facility] Rx#:[id number] Oral 360 300 Other: Voiding Method Toilet Toilet # Voids 0 2 1 - Exam General appearance: The patient is alert, oriented, in no acute distress. HET: Head is normocephalic and atraumatic. Pupils are equal and reactive. Oropharynx is clear without lesions. Neck: Supple without lymphadenopathy. Trachea midline. Heart: S1 S2. Lungs: No crackles or wheezes are heard. Abdomen: Soft, nontender, nondistended with bowel sounds. No peritoneal signs. No palpable organomegaly or masses. Extremities: Normal skin color and turgor. No cyanosis, rash, ulceration, clubbing, or edema. Radial and pedal pulses are 2/4 bilaterally. Neurological: No focal deficits. Strength and sensation are grossly intact. - Labs CBC & Chem 7: 08/22/17 06:01 08/22/17 06:01 Labs: Abnormal Lab Results - Last 24 Hours (Table) 08/20/17 08/22/17 08/22/17 Range/Units 05:49 06:01 06:01 MCHC 29.8 L (31.0-37.0) g/dL Carbon Dioxide 34 H (22-30) mmol/L Glucose 103 H (74-99) mg/dL Total Bilirubin 1.6 H (0.2-1.3) mg/dL Hep Bs Antigen Reactive H (Non-Reactive) Assessment and Plan (1) Elevated liver enzymes Narrative/Plan: 56-year-old male admitted with acute shortness of breath upper new onset atrial fibrillation abdominal chest discomfort exacerbated when lying down and elevated liver enzymes with radiographic abdominal cardiac imaging reporting cardiomegaly and congestive heart failure. Suspect component of elevated liver enzymes secondary to passive venous congestion however underlying acute possible chronic hepatitis B infection could also be contributing to elevated liver enzymes possible combination of both. Current Visit: Yes Status: Acute Code(s): R74.8 - ABNORMAL LEVELS OF OTHER SERUM ENZYMES SNOMED Code(s): 377821431 (2) Hepatitis B surface antigen positive Narrative/Plan: Acute hepatitis B possible chronic immune tolerant chronic hepatitis B possible immune active chronic hepatitis B Current Visit: Yes Status: Acute Code(s): R76.8 - OTHER SPECIFIED ABNORMAL IMMUNOLOGICAL FINDINGS IN SERUM SNOMED Code(s): 080561304 Plan: 1. Additional hepatitis B serology requested to determine acute versus chronic HBV infection. 2. Discharge per cardiology medicine once additional blood work has been received. Follow up in GI office after discharge reevaluation. Hepatitis B information/education provided in Iranian. Assessment and plan of care discussed with Dr. Acosta.
[2017-08-22 11:57] VITALS: BP 138/84; PULSE 88
--- NOTE | 2017-08-22 12:42 | P.PN ---
Subjective Progress Note Date: 08/22/17 This is a 56-year-old gentleman who presented to the hospital with symptoms of abdominal discomfort and associated shortness of breath. He also had some mild complaints of nausea. Cardiology was initially requested to see the patient because of atrial fibrillation with a moderately rapid ventricular response. He was seen in consultation by Dr. Bartolo Werner, patient was also noted to have an elevated BNP level with exacerbation of congestive cardiac failure. An echocardiogram with Doppler study was performed which revealed an ejection fraction of 25-30%, mild to moderate mitral regurgitation noted, LAD was severely dilated. Patient was diuresed, and then recommended to undergo cardiac catheterization to rule out underlying coronary artery disease. Cardiac catheterization did not reveal any significant obstructive coronary artery disease. Patient was seen and examined this morning, blood pressure 124/ 56, heart rate in the 80s to 90s, respirations 16. He is afebrile. White blood cell count 8.7, hemoglobin 14.7, platelet count 172. Sodium 142, potassium 4.5, BUN 20, creatinine 0.8. Bilirubin 1.6. Hepatitis panel was also performed, which was reactive for hepatitis B antigen. HIV studies nonreactive. Objective - Vital Signs Vital signs: Vital Signs Temp 97 F L 08/22/17 09:26 Pulse 88 08/22/17 11:50 Resp 16 08/22/17 11:50 BP 138/84 08/22/17 11:50 Pulse Ox 95 08/22/17 11:50 Intake & Output 08/21/17 08/22/17 08/22/17 18:59 06:59 18:59 Intake Total 460 800 Balance 460 800 Weight 80.4 kg Intake: IV 100 Intake, IV Titration 500 Amount Sodium Chloride 0.9% 1, 500 000 ml @ 75 mls/hr IV . [id number] [facility] Rx#:[id number] Oral 360 300 Other: Voiding Method Toilet Toilet # Voids 0 2 1 - Exam PHYSICAL EXAMINATION: HEENT: [Head is atraumatic, normocephalic. Pupils equal, round. Neck is supple. There is no elevated jugular venous pressure.] HEART EXAMINATION: [Heart S1, S2 irregularly irregular, systolic murmur is heard.] CHEST EXAMINATION:[ Lungs are clear to auscultation and precussion. No chest wall tenderness is noted on palpation or with deep breathing.] ABDOMEN: [ Soft, nontender. Bowel sounds are heard. No organomegaly noted] .right groin soft, no evidence of any hematoma. EXTREMITIES:[ 2+ peripheral pulses with no evidence of peripheral edema and no calf tenderness noted]. NEUROLOGIC [patient is awake, alert and oriented -3.] . - Labs CBC & Chem 7: 08/22/17 06:01 08/22/17 06:01 Labs: Abnormal Lab Results - Last 24 Hours (Table) 08/22/17 08/22/17 Range/Units 06: 06:01 MCHC 29.8 L (31.0-37.0) g/dL Carbon Dioxide 34 H (22-30) mmol/L Glucose 103 H (74-99) mg/dL Total Bilirubin 1.6 H (0.2-1.3) mg/dL Assessment and Plan Plan: assessment and plan #1 nonischemic cardiomyopathy, status post cardiac catheterization which did not reveal anysignificant obstructive coronary artery disease. #2 chronic persistent atrial fibrillation #3 hypertension #4 systolic congestive #5 abnormal liver function,hep B positive Plan We will discontinue the IV Lasix and change patient over to oral diuretics, Lasix 40 mg by mouth twice a day.we will continue Eliquis 5 mg one tablet by mouth twice a day, Ecotrin 81 mg daily, losartan 100 mg daily, metoprolol 50 mg one tablet by mouth twice a day, and Aldactone 12-1/2 mg daily. A follow-up appointment will be made with Dr. Bartolo Werner in the office post discharge. DNP note has been reviewed, I agree with a documented findings and plan of care. Patient was seen and examined.
[2017-08-22] MEDS ORDERED: FUROSEMIDE 40 MG TAB PO SCH (16:00)
[2017-08-22 16:38] LABS: Hepatitis B Surface AB- Quant 3.5 mIU/mL
--- NOTE | 2017-08-23 | DS ---
DISCHARGE SUMMARY FINAL DIAGNOSES: 1. Congestive heart failure, acute exacerbation, with acute on chronic systolic dysfunction, ejection fraction 25% to 30%, with non-ischemic cardiomyopathy. 2. Status post cardiac catheterization with normal coronary arteries. 3. Troponin 0.06, indeterminate. 4. Increased AST, ALT, alkaline phosphatase, with possible chronic liver disease due to cirrhosis of the liver, possibly passive congestion of congestive heart failure. 5. HBsAg positive. 6. Hyponatremia. 7. Increased random blood sugar. DISCHARGE DISPOSITION: The patient will be discharged in stable condition with guarded prognosis. Cardiology cleared the patient for discharge. HISTORY OF PRESENT ILLNESS: This 56-year-old gentleman was admitted with CHF, acute exacerbation, ejection around 20% to 30%. Cardiac catheterization was normal. HBsAg was positive. Recommend outpatient followup. On examination, vitals are stable. CARDIOVASCULAR SYSTEM: S1, S2 muffled. RESPIRATORY: A few rhonchi. ABDOMEN: Soft. DISCHARGE ADVICE AND MEDICATIONS: 1. Diet is cardiac. 2. Activity limited until followup. 3. Follow up with Dr. Iain Pichardo in 2 to 3 days. 4. Follow up with Dr. Acosta as advised. 5. Follow up with Dr. Alonso Werner as advised. 6. Eliquis 5 mg p.o. b.i.d. 7. Aspirin 81 mg p.o. daily. 8. Lasix 40 mg p.o. b.i.d. 9. Cozaar 100 mg p.o. daily. 10.Lopressor 50 mg p.o. b.i.d. 11.Aldactone 12.5 mg daily. Once again, the patient will be discharged in stable condition with guarded prognosis. MMODL / IJN: [id number] /
[2017-08-23 16:06] LABS: Hepatitis BE Antibody POS (Negative); Hepatitis BE Antigen NEG (Negative)
[2017-08-26 13:52] LABS: Hepatitis B Virus DNA DETECTED (Not detected); Log HBV IU/mL 4.11 (<1.00)
== END 2017-08-22 15:23 | disposition home or self-care (01) | DRG 287 ==
LOC: EC 01:06 → 6SEL 02:46
PROVIDERS: ADMIT Hospitalist; ATTEND Hospitalist
PROC: B2111ZZ Fluoroscopy of Multiple Coronary Arteries using Low Osmolar Contrast (ICD-10-PCS; 2017-08-21)
PROC: B2151ZZ Fluoroscopy of Left Heart using Low Osmolar Contrast (ICD-10-PCS; 2017-08-21)
PROC: 4A023N8 Measurement of Cardiac Sampling and Pressure, Bilateral, Percutaneous Approach (ICD-10-PCS; principal; 2017-08-21 12:00)
DX: I11.0 Hypertensive heart disease with heart failure (principal); E87.1 Hypo-osmolality and hyponatremia; B19.10 Unspecified viral hepatitis B without hepatic coma; I48.1 Persistent atrial fibrillation; R18.8 Other ascites; I50.23 Acute on chronic systolic (congestive) heart failure; I27.20 Pulmonary hypertension, unspecified; I42.9 Cardiomyopathy, unspecified; I48.2 Chronic atrial fibrillation; I34.0 Nonrheumatic mitral (valve) insufficiency; R79.1 Abnormal coagulation profile; R74.8 Abnormal levels of other serum enzymes; R73.9 Hyperglycemia, unspecified
CPT/HCPCS: 36415; 71046; 74177; 80053; 80074; 81001; 82105; 82550; 82553; 82810; 83690; 83735; 83880; 84443; 84484; 85018; 85025; 85610; 85730; 86706; 86707; 87350; 87390; 87517; 93005; 93306; 93460; 96361; 96365; 96366; 96368; 96375; 96376; 99291

== ENCOUNTER → 2017-08-30 | Outpatient (CLI) | payer BC ==
[2017-08-30 11:56] LABS: Hypochromasia Moderate; MCH 26.6 pg (25.0-35.0); MCHC 31.2 g/dL (31.0-37.0); Mean Platelet Volume 7.9; Platelet Count 188 k/uL (150-450); RBC 6.83 m/uL (4.30-5.90); RDW 14.3 % (11.5-15.5); WBC 6.6 k/uL (3.8-10.6)
[2017-08-30 12:02] LABS: ALT 46 U/L (21-72); AST 51 U/L (17-59)
[2017-08-30 12:07] LABS: HGB 18.1 gm/dL (13.0-17.5)
[2017-08-30 12:29] LABS: INR 1.3 (<1.2); Partial Thromboplastin Time 25.2 sec (22.0-30.0); Prothrombin Time 12.4 sec (9.0-12.0)
== END | disposition home or self-care (01) ==
LOC: LABWHC1 10:51
PROVIDERS: ATTEND Internal Medicine Interventional Cardiology
DX: I50.9 Heart failure, unspecified (principal); I48.91 Unspecified atrial fibrillation
CPT/HCPCS: 36415; 84450; 84460; 85027; 85610; 85730

== ENCOUNTER 2017-10-04 05:37 | Day surgery (SDC) | payer BC ==
[2017-09-30 17:52] VITALS: BMI 28.8
[~2017-10-04 05:37] MED LIST: SODIUM CHLORIDE 0.9% 1,000 ML IV SCH
[2017-10-04] MEDS ORDERED: MIDAZOLAM 2 MG/2 ML VIAL IV PRN (06:04)
[2017-10-04] MEDS ORDERED: ONDANSETRON 4 MG/2 ML VIAL IVP ONE (06:04)
[2017-10-04] MEDS ORDERED: LACTATED RINGERS 1,000 ML IV SCH ×2 (06:04)
[2017-10-04] MEDS ORDERED: DEXAMETHASONE SOD PHOSPHATE 10 MG/ML 1 ML VIAL IV ONE (06:04)
[2017-10-04] MEDS ORDERED: fentaNYL (PF) 50 MCG/ML 2 ML AMP IV PRN (06:04)
[2017-10-04 06:52] LABS: Anion Gap 15 mmol/L; Blood Urea Nitrogen 19 mg/dL (9-20); Calcium 9.4 mg/dL (8.4-10.2); Carbon Dioxide 23 mmol/L (22-30); Chloride 105 mmol/L (98-107); Glucose 117 mg/dL (74-99); Potassium 4.9 mmol/L (3.5-5.1); Sodium 143 mmol/L (137-145)
[2017-10-04] MEDS ORDERED: IV FLUID CONTINUATION 500 ML IV ONE ×2 (06:52→06:58)
[2017-10-04] MEDS ORDERED: PROPOFOL 10 MG/ML 20 ML VIAL IV ONE (07:15)
[2017-10-04] MEDS ORDERED: LIDOCAINE 1% INJ 10MG/ML (20 ML MDV) ONE (07:15)
[2017-10-04] MEDS ORDERED: SODIUM CHLORIDE 0.9% 1,000 ML IV SCH (07:30)
[2017-10-04 07:36] VITALS: TEMP 98
--- NOTE | 2017-10-04 08:43 | CE ---
CARDIAC ELECTROPHYSIOLOGY REPORT DATE OF SERVICE: 10/04/2017 PROCEDURE: Electrical cardioversion. INDICATION: Persistent new onset atrial fibrillation. PERFORMED BY: Dr. Grace Werner CLINICAL INFORMATION: Mr. Iqbal is a 57-year-old gentleman who was recently seen by me in the hospital when he presented with congestive heart failure, atrial fibrillation and has had a coronary angiography which revealed a nonischemic cardiomyopathy type picture. After adequately anticoagulating him, he was advised to have an electrical cardioversion and brought in for the procedure electively after due discussion regarding risks, benefits, options and informed consent was obtained. PROCEDURE NOTE: Under the influence of ultra short-acting intravenous anesthetic agent with the attendance of the anesthesiologist, an initial shock of 200 joules was delivered with anterior and posterior patches. Patient converted to sinus rhythm transiently for maybe 30 seconds and then went back into atrial fibrillation with a controlled rate. A repeat shock was then delivered at 200 joules. He converted again into sinus rhythm, lasted maybe 10 to 15 seconds and went back into atrial fibrillation with a controlled rate. He was hemodynamically stable and neurologically intact. This was an unsuccessful electrical cardioversion. The patient will be initiated on amiodarone and brought back for the procedure. MMODL / IJN: [id number] /
[2017-10-04 08:59] VITALS: RESP 16
[2017-10-04 11:12] VITALS: BP 165/84; PULSE 68
== END 2017-10-04 11:09 | disposition home or self-care (01) ==
LOC: CATHCVL 05:37
PROVIDERS: ATTEND Internal Medicine Interventional Cardiology
DX: I48.1 Persistent atrial fibrillation (principal); Z79.01 Long term (current) use of anticoagulants; I42.8 Other cardiomyopathies; I11.0 Hypertensive heart disease with heart failure; I50.9 Heart failure, unspecified; K75.9 Inflammatory liver disease, unspecified; Z79.899 Other long term (current) drug therapy
CPT/HCPCS: 92960; 80048; J2001; J2704

== ENCOUNTER → 2018-08-09 | Outpatient (CLI) | payer BC ==
[2018-08-09 10:30] LABS: HCT 45.8 % (39.0-53.0); HGB 14.9 gm/dL (13.0-17.5); MCH 28.7 pg (25.0-35.0); MCHC 32.5 g/dL (31.0-37.0); MCV 88.6 fL (80.0-100.0); Mean Platelet Volume 7.9; Platelet Count 215 k/uL (150-450); RBC 5.17 m/uL (4.30-5.90); RDW 13.4 % (11.5-15.5); WBC 9.5 k/uL (3.8-10.6)
[2018-08-09 11:11] LABS: Magnesium 1.8 mg/dL (1.6-2.3); Potassium 5.1 mmol/L (3.5-5.1)
== END | disposition home or self-care (01) ==
LOC: LABPAT 09:26
PROVIDERS: ATTEND Internal Medicine Interventional Cardiology
DX: Z01.812 Encounter for preprocedural laboratory examination (principal); I42.8 Other cardiomyopathies; I48.91 Unspecified atrial fibrillation
CPT/HCPCS: 36415; 80051; 82565; 82947; 83735; 84520; 85027

== ENCOUNTER → 2018-08-26 | Day surgery (SDC) | payer BC ==
[2018-08-22 10:31] VITALS: BMI 28.3
[~2018-08-26] MED LIST changes: +IV FLUID CONTINUATION 1,000 ML IV ONE; +MIDAZOLAM 2 MG/2 ML VIAL ONE; +PROPOFOL 10 MG/ML 20 ML VIAL IV ONE
[2018-08-26 06:56] VITALS: TEMP 97.7
--- NOTE | 2018-08-26 08:26 | CE ---
CARDIAC ELECTROPHYSIOLOGY REPORT DATE OF SERVICE: 08/26/2018 PROCEDURE: Electrical cardioversion. INDICATION: Persistent atrial fibrillation in a patient with a nonischemic cardiomyopathy. CLINICAL INFORMATION: Mr. Vern Iqbal is a 57-year-old gentleman with a persistent atrial fibrillation, previously unresponsive to electrical cardioversion. He also has a nonischemic cardiomyopathy with ejection fraction in the range of 35% also. He was placed on amiodarone, loaded for the last 4-6 weeks and brought in for the procedure electively. Risks, benefits, options and rationale were explained. PROCEDURE NOTE: Under the influence of ultra short-acting intravenous anesthetic agent with the anesthesiologist in attendance, a single synchronized 250 joules shock was delivered with anterior and posterior patches. Patient converted to sinus rhythm, remained hemodynamically stable and neurologically intact with sinus bradycardia. This was a successful electrical cardioversion. The patient will be discharged on amiodarone 200 mg daily, metoprolol tartrate will be 50 mg daily starting tomorrow. He will continue Eliquis 5 mg b.i.d., Lasix and also losartan at 40 and 100 mg daily. He is on Aldactone 12.5 mg every day as well. These medicines will be continued. MMODL / IJN: [id number] /
--- NOTE | 2018-08-26 08:26 | CE ---
CARDIAC ELECTROPHYSIOLOGY REPORT ADDENDUM: Soon after I dictated my report of electrical cardioversion, Mr. Iqbal went back into atrial flutter with a slow to moderate ventricular rate. He was given additional propofol by the anesthesiologist and he was again shocked this time with another 250 joules with anterior and posterior patches. However, this time electrical cardioversion was unsuccessful and he remains in atrial fib with a controlled rate, hemodynamically stable and neurologically intact. The procedure, therefore, with the first shock was successful but lasted less than 5 minutes and he went back into atrial fib and the second shock was unsuccessful. This is, therefore, an unsuccessful electrical cardioversion. We will therefore pursue medical therapy for this patient or consider other avenues. He will be going home later today after he is fully awake on the medications mentioned above. MMBEVERLY / SLYN: [id number] /
[2018-08-26 08:47] VITALS: RESP 20
[2018-08-26 12:44] VITALS: BP 108/74; PULSE 45
== END ==
LOC: CATHCVL 06:28
PROVIDERS: ATTEND Internal Medicine Interventional Cardiology
DX: I48.1 Persistent atrial fibrillation (principal); I42.8 Other cardiomyopathies; K75.9 Inflammatory liver disease, unspecified; Z79.01 Long term (current) use of anticoagulants; Z79.1 Long term (current) use of non-steroidal anti-inflammatories (NSAID); Z79.899 Other long term (current) drug therapy
CPT/HCPCS: 92960; J2250; J2704

== ENCOUNTER → 2020-03-01 | Outpatient (CLI) | payer BC ==
[2020-03-01 16:32] LABS: African American GFR (CKD) 75.7 (60.0-200.0); Anion Gap 10.6 mmol/L (4.00-12.00); BUN/Creat Ratio 24.17 Ratio (12.00-20.00); Calcium 10.8 mg/dL (8.7-10.3); Carbon Dioxide 31.4 mmol/L (21.6-31.8); Magnesium 1.6 mg/dL (1.5-2.4); Non-African American GFR(CKD) 65.3 (60.0-200.0); Potassium 4.1 mmol/L (3.5-5.5)
== END | disposition home or self-care (01) ==
LOC: LABWHC1 08:14
PROVIDERS: ATTEND Nurse Practitioner
DX: I10 Essential (primary) hypertension (principal)
CPT/HCPCS: 36415; 80048; 83735

== ENCOUNTER → 2024-04-14 | Day surgery (SDC) | payer BC ==
[2024-04-10 11:31] VITALS: BMI 27.6
[~2024-04-14] MED LIST changes: +ALPRAZolam 0.25 MG TAB PO PRN; +ALPRAZolam 0.5 MG TAB PO PRN; +APIXABAN 5 MG TAB PO SCH; +HEPARIN SODIUM,PORCINE (1 ML) 2,500 UNIT in SODIUM CHLORIDE 0.9% 250 ML IRRIGATION PRN; +HEPARIN SODIUM,PORCINE 10,000 UNIT in SODIUM CHLORIDE 0.9% 1,000 ML IRRIGATION PRN; -IV FLUID CONTINUATION 1,000 ML IV ONE; +LOSARTAN 50 MG TAB PO SCH; +METOPROLOL TARTRATE 50 MG TAB PO SCH; -MIDAZOLAM 2 MG/2 ML VIAL ONE; +NITROGLYCERIN SL TABS 0.4 MG TAB SUBLINGUAL PRN; -PROPOFOL 10 MG/ML 20 ML VIAL IV ONE; +RX INFO: IV CONTRAST WAS GIVEN 1 EACH MISC MISCELLANE PRN
[2024-04-14] MEDS: IV FLUID CONTINUATION 1,000 ML IV ONE (07:05)
[2024-04-14] MEDS: SODIUM CHLORIDE 0.9% 1,000 ML in EMPTY BAG 1 BAG IV SCH (07:07)
[2024-04-14] MEDS: ASPIRIN 325 MG TAB PO STA (07:07)
[2024-04-14 07:16] VITALS: TEMP 97.7
[2024-04-14 07:19] LABS: Basophils # (A) 0.1 k/uL (0-0.2); Basophils % (A) 1 %; Eosinophils # (A) 0.2 k/uL (0-0.7); Eosinophils % (A) 2 %; HCT 38.9 % (39.0-53.0); HGB 12.6 gm/dL (13.0-17.5); Hypochromasia Slight; Lymphocytes # (A) 2.3 k/uL (1.0-4.8); Lymphocytes % (A) 23 %; MCH 29.6 pg (25.0-35.0); MCHC 32.4 g/dL (31.0-37.0); MCV 91.6 fL (80.0-100.0); Mean Platelet Volume 8.3; Monocytes # (A) 0.4 k/uL (0-1.0); Monocytes % (A) 5 %; Neutrophils # (A) 6.7 k/uL (1.3-7.7); Neutrophils % (A) 67 %; Platelet Count 206 k/uL (150-450); RBC 4.24 m/uL (4.30-5.90); WBC 9.9 k/uL (3.8-10.6)
[2024-04-14 07:36] LABS: African American GFR (CKD) 85 (>60 ml/min/1.73 sqM); Anion Gap 7 mmol/L; Blood Urea Nitrogen 20 mg/dL (9-20); Calcium 9.3 mg/dL (8.4-10.2); Carbon Dioxide 30 mmol/L (22-30); Chloride 104 mmol/L (98-107); Glucose 142 mg/dL (74-99); Non-African American GFR(CKD) 74 (>60 ml/min/1.73 sqM); Potassium 4.2 mmol/L (3.5-5.1); Sodium 141 mmol/L (137-145)
[2024-04-14] MEDS: MIDAZOLAM 2 MG/2 ML VIAL IVP ONE (09:34)
[2024-04-14] MEDS: LIDOCAINE 1% INJ 10MG/ML (20 ML MDV) SQ ONE (09:35)
[2024-04-14] MEDS: VERAPAMIL SYRINGE (5 MG/10 ML) INTRAARTER ONE (09:36)
[2024-04-14] MEDS: HEPARIN SODIUM 1,000 UN/ML (10ML VL) IVP ONE (09:42)
[2024-04-14] MEDS: NITROGLYCERIN SL TABS 0.4 MG TAB SUBLINGUAL ONE (09:42)
[2024-04-14] MEDS: HEPARIN SODIUM,PORCINE (1 ML) 2,500 UNIT in SODIUM CHLORIDE 0.9% 250 ML IRRIGATION ONE (09:43)
[2024-04-14] MEDS: HEPARIN SODIUM,PORCINE 10,000 UNIT in SODIUM CHLORIDE 0.9% 1,000 ML IRRIGATION ONE (09:43)
[2024-04-14] MEDS: IOPAMIDOL-370 100ML BTL INJ ONE (09:55)
--- NOTE | 2024-04-14 10:16 | P.CARDCATH ---
Date of Procedure: 04/14/24 Description of Procedure: History: Patient was referred for cardiac catheterization to evaluate for CAD. This is a 63-year-old gentleman with chronic persistent atrial fibrillation previous unsuccessful electrical cardioversion. He has nonischemic cardiomyopathy and hypertension. Of late he has been having symptoms of shortness of breath and a recent stress test revealed a predominantly fixed defect. He was advised coronary angiography to rule out any progression of disease. His last cardiac cath was in 2018. Risks benefits options and rationale were explained. Patient understood all details and wished to proceed with the procedure Procedure Details: The risks, benefits, complications, treatment options, and expected outcomes were discussed with the patient. The patient concurred with the proposed plan, giving informed consent. Patient was brought to the laborer/grade check after IV hydration was begun and oral premedication was given. Patient was further sedated with midazolam. Patient was prepped and draped in the usual manner. Under strict aseptic precautions with ultrasound guidance and local anesthesia a 6 American introducer was placed in the right radial artery. Using a JL 3/5 and a JR 4/0 catheters I performed coronary angiography and the same JR catheter was used to check LV pressures and LV gram was not performed. After the procedure was completed the sheaths and catheters were all removed. Hemostasis was achieved with TR band. Saturation in the fingers of the right hand was about 93%. Moderate conscious sedation time was 20 minutes. Patient's oxygen saturation hemodynamics and EKG were monitored closely. Findings: Hemodynamics: The left ventricular end-diastolic pressure was 18 mmHg without any gradient across aortic valve Left Main: Short patent vessel almost appears like 2 separate origins. No significant disease LAD: Good caliber vessel supplies a sizable amount of myocardium gives off septal and diagonal branches runs all the way to the apex. Mild narrowing towards the apex but no significant obstructive disease other than minor irregularities of no more than 30%. LAD diagonal and septal have minor irregularities. CIRC: Dominant vessel gives off a very high obtuse marginal almost looks like a ramus and then a second obtuse marginal and continues distally as a dominant vessel and divides into PDA and PLV. All vessels have minor irregularities no significant disease and the flow is sluggish as we would see in cardiomyopathy. The high obtuse marginal or ramus has a 35% narrowing. Overall no significant disease in the dominant circumflex which seems to supply a sizable amount of myocardium RCA: Nondominant vessel fair caliber small distribution minor irregularities no significant disease LV: Not performed Closure Device: TR band Complications: None Estimated Blood Loss: Minimal Impression: This patient has slightly elevated filling pressures no gradient the left dominant system minor irregularities no significant obstructive CAD Pre Procedure Diagnosis: Nonischemic cardiomyopathy with abnormal stress test Final Post Procedure Diagnosis: Nonischemic cardiomyopathy with noncritical CAD Recommendation: Findings reviewed with the patient no family available we will continue same medications with no aspirin he will be on Eliquis losartan beta- kaylin and I will add Aldactone 25 mg daily in the morning and he will be seen in the office on the . Discharge instructions given. No alcohol consumption. Complications: None; patient tolerated the procedure well. Disposition: [facility]- hemodynamically stable. Condition: Stable Discharge Disposition: Discharge patient home later on today.
[2024-04-14] MEDS: ATORVASTATIN 80 MG TAB PO STA (10:41)
[2024-04-14] MEDS: SPIRONOLACTONE 25 MG TAB PO SCH (11:09)
--- NOTE | 2024-04-14 12:46 | CA ---
Transthoracic Echo Report Name: Vern Iqbal Age: 63 Gender: M : 1960 Exam Date: 04/14/2024 11:10 Exam Location: [facility] Ht (in): 66 Wt (lb): 181 Ordering Physician: Ananth Werner MD ([id number]) Attending/Referring Phys: Hands Parter Kristel Morgan RDCS Procedure CPT: Indications: cardiomyopathy Cardiac Hx: cath done prior to echo Technical Quality: Technically difficult study Contrast 1: Definity Total Dose (mL): 2 Contrast 2: Total Dose (mL): MEASUREMENTS (Male / Female) Normal Values 2D ECHO LV Diastolic Diameter PLAX 4.8 cm 4.2 - 5.9 / 3.9 - 5.3 cm LV Systolic Diameter PLAX 3.2 cm IVS Diastolic Thickness 1.2 cm 0.6 - 1.0 / 0.6 - 0.9 cm LVPW Diastolic Thickness 1.0 cm 0.6 - 1.0 / 0.6 - 0.9 cm LV Relative Wall Thickness 0.5 LVOT Diameter 1.9 cm LV Diastolic Volume MOD BP 144.2 cm??? 67 - 155 / 56 - 104 cm??? LV Systolic Volume MOD BP 78.7 cm??? 22 - 58 / 19 - 49 cm??? LV Ejection Fraction MOD BP 45.4 % >= 55 % LV Cardiac Index MOD BP 1819.5 cm???/min???m??? LV Diastolic Volume MOD 4C 153.8 cm??? LV Systolic Volume MOD 4C 88.5 cm??? LV Ejection Fraction MOD 4C 42.4 % LV Cardiac Index MOD 4C 1814.3 cm???/min???m??? LV Diastolic Length 4C 8.7 cm LV Systolic Length 4C 7.6 cm LV Diastolic Volume MOD 2C 132.0 cm??? LV Systolic Volume MOD 2C 69.7 cm??? LV Ejection Fraction MOD 2C 47.2 % LV Cardiac Index MOD 2C 1730.1 cm???/min???m??? LV Diastolic Length 2C 8.4 cm LV Systolic Length 2C 7.7 cm LA Volume 171.3 cm??? 18 - 58 / 22 - 52 cm??? LA Volume Index 86.6 cm???/m??? 16 - 28 cm???/m??? Ascending Aorta Diameter 3.2 cm DOPPLER AV Peak Velocity 122.0 cm/s AV Peak Gradient 6.0 mmHg AV Mean Velocity 89.4 cm/s AV Mean Gradient 3.6 mmHg AV Velocity Time Integral 25.1 cm LVOT Peak Velocity 111.7 cm/s LVOT Peak Gradient 5.0 mmHg LVOT Velocity Time Integral 20.6 cm LVOT Stroke Volume 57.1 cm??? LVOT Stroke Volume Index 29.8 ml/m??? LVOT Cardiac Index 1588.6 cm???/min???m??? AV Area Cont Eq vti 2.3 cm??? AV Area Cont Eq pk 2.5 cm??? TR Peak Velocity 319.9 cm/s TR Peak Gradient 40.9 mmHg Right Atrial Pressure 15.0 mmHg Pulmonary Artery Systolic Pressu 55.9 mmHg Right Ventricular Systolic Press 55.9 mmHg PV Peak Velocity 50.7 cm/s PV Peak Gradient 1.0 mmHg FINDINGS Left Ventricle Left ventricular ejection fraction is estimated at about 45%. Echo contrast was used to improve the quality of images. There is global decrease in contractility. Right Ventricle Right ventricular dilatation with mildly reduced function. Moderate pulmonary hypertension. Right Atrium Severe right atrial dilatation. Left Atrium Severely increased left atrial volume. Moderately increased left atrial area. Mitral Valve Mitral valve thickened. No evidence for mitral valve prolapse. No mitral stenosis. Mild mitral regurgitation. Aortic Valve Trileaflet aortic valve. No aortic stenosis. Mild aortic regurgitation. Tricuspid Valve Structurally normal tricuspid valve. No tricuspid stenosis. [id number] tricuspid regurgitation. Pulmonic Valve Pulmonic valve not well visualized. No pulmonic stenosis. Trace pulmonic regurgitation. Pericardium No pericardial effusion. Prominent epicardial fat. Aorta Normal size aortic root and proximal ascending aorta. CONCLUSIONS Left ventricle is at upper limits of normal with global decrease in contractility and estimated ejection fraction of 45%. Biatrial severe enlargement noted. Right ventricle is mildly dilated. There is mild to moderate mitral and tricuspid regurgitation with mild to moderate pulmonary hypertension. No pericardial effusion Previewed by: Dr. Ananth Werner MD (Electronically Signed) Final Date: 14 April 2024 12:45
[2024-04-14 15:38] VITALS: RESP 14
[2024-04-14 15:43] VITALS: BP 163/81; PULSE 56
== END ==
LOC: CATHCVL 06:43
PROVIDERS: ATTEND Internal Medicine Interventional Cardiology
CPT/HCPCS: 80048; 85025; 93306; 93458